=== PATIENT | female | born 1955 | race Caucasian/White ===

== ENCOUNTER 2024-08-11 11:11 | Observation (INO) | payer OTHER ==
[2024-08-11] MEDS ORDERED: CLINDAMYCIN 600MG PREMIX IVPB 600 MG/50 ML BAG IVPB ONE (13:19)
[2024-08-11 13:28] LABS: BASO % 0.2 % (0-2.0); EOS % 7.1 % (0-4.5); HEMATOCRIT 47.3 % (32.4-45.2); HEMOGLOBIN 15.8 GM/dL (10.7-15.3); LYMPH % 12.6 % (8-40); MCH 27.8 pg (25.7-33.7); MCHC 33.4 g/dl (32.0-36.0); MEAN PLT VOLUME 9.3 fl (7.5-11.1); MONO % 7.1 % (3.8-10.2); PLATELET COUNT 274 10^3/uL (134-434); RBC 5.69 M/mm3 (3.60-5.2); RDW 14.9 % (11.6-15.6); WHITE BLOOD COUNT 7.8 K/mm3 (4.0-10.0)
[2024-08-11 13:39] LABS: PH,URINE 5.5 (5.0-8.0); URINE APPEARANCE CLEAR; URINE BILIRUBIN NEGATIVE (NEGATIVE); URINE COLOR YELLOW; URINE GLUCOSE (UA) 3+ (NEGATIVE); URINE KETONE NEGATIVE (NEGATIVE); URINE LEUK ESTERASE NEGATIVE (NEGATIVE); URINE NITRITE NEGATIVE (NEGATIVE); URINE PROTEIN NEGATIVE (NEGATIVE); URINE UROBILINOGEN 0.2 mg/dL (0.2-1.0)
[2024-08-11] MEDS: CLINDAMYCIN 600MG PREMIX IVPB 600 MG/50 ML BAG IVPB ONE (13:43)
[2024-08-11 13:59] LABS: CHLORIDE 104 mmol/L (98-107); SODIUM 132 mmol/L (136-145)
[2024-08-11 14:01] LABS: ALBUMIN 3.7 g/dl (3.4-5.0); ANION GAP 4 mmol/L (4-13); BLOOD UREA NITROGEN 22.1 mg/dL (7-18); CO2 24 mmol/L (21-32); GLUCOSE,RANDOM 314 mg/dL (74-106)
[2024-08-11 14:04] LABS: SGOT/AST 75 U/L (15-37)
[2024-08-11 14:05] LABS: SGPT/ALT 34 U/L (13-61)
[2024-08-11 14:06] LABS: BILIRUBIN,TOTAL 0.5 mg/dL (0.2-1); TOT PROT 7.7 g/dl (6.4-8.2)
[2024-08-11 14:08] LABS: ALK PHOS 79 U/L (45-117)
[2024-08-11 14:29] LABS: LACTIC ACID 3.6 mmol/L (0.4-2.0)
[2024-08-11 16:51] LABS: LACTIC ACID 3.5 mmol/L (0.4-2.0)
[2024-08-11] MEDS: SODIUM ZIRCONIUM CYCLOSILICATE (LOKELMA) 5 GM PACKET PO SCH (18:04)
[2024-08-11] MEDS: SODIUM CHLORIDE 1,000 ML IV SCH (18:05)
[2024-08-11] MEDS: LACTATED RINGERS SOLUTION 1,000 ML/1,000 ML INFUS.BAG IV STA (20:17)
[2024-08-11 20:57] VITALS: BMI 28.0
[2024-08-11 21:17] LABS: CALCIUM 9.4 mg/dL (8.5-10.1)
[2024-08-11 21:18] LABS: BLOOD UREA NITROGEN 24.9 mg/dL (7-18)
[2024-08-11 21:21] LABS: CREATININE 0.9 mg/dL (0.55-1.3)
[2024-08-11 21:30] LABS: LACTIC ACID 2.2 mmol/L (0.4-2.0)
[2024-08-12] MEDS: CALCIUM GLUC IN NACL, ISO-OSM 1 GM/50 ML BAG IVPB ONE (00:19)
[2024-08-12] MEDS: INSULIN REGULAR HUMAN 100 UNITS/ML *VIAL IVPUSH ONE (00:19)
[2024-08-12] MEDS: VANCOMYCIN 1 GM PREMIX (F) 1 GM/200 ML BAG IVPB SCH ×2 (00:20)
[2024-08-12] MEDS: INSULIN ASPART SLIDING SCALE (NOVOLOG) 1 VIAL SQ SCH (00:20)
[2024-08-12 00:39] LABS: POTASSIUM 3.9 mmol/L (3.5-5.1)
[2024-08-12 00:42] LABS: BLOOD UREA NITROGEN 22.2 mg/dL (7-18)
[2024-08-12 00:44] LABS: CREATININE 0.6 mg/dL (0.55-1.3)
[2024-08-12 10:03] LABS: BASO % 0.1 % (0-2.0); EOS % 8.7 % (0-4.5); HEMATOCRIT 45.4 % (32.4-45.2); HEMOGLOBIN 14.7 GM/dL (10.7-15.3); LYMPH % 14.1 % (8-40); MCH 27.2 pg (25.7-33.7); MCHC 32.3 g/dl (32.0-36.0); MEAN CELL VOLUME 84.1 fl (80-96); MEAN PLT VOLUME 8.8 fl (7.5-11.1); MONO % 8.5 % (3.8-10.2); NEUT % 68.6 % (42.8-82.8); PLATELET COUNT 216 10^3/uL (134-434); RDW 14.4 % (11.6-15.6); WHITE BLOOD COUNT 6.6 K/mm3 (4.0-10.0)
[2024-08-12 10:30] LABS: POTASSIUM 3.8 mmol/L (3.5-5.1)
[2024-08-12 10:32] LABS: ALBUMIN 3.2 g/dl (3.4-5.0); BLOOD UREA NITROGEN 15.3 mg/dL (7-18); CALCIUM 9.1 mg/dL (8.5-10.1)
[2024-08-12 10:35] LABS: CREATININE 0.6 mg/dL (0.55-1.3); PHOSPHOROUS 3.7 mg/dL (2.5-4.9)
[2024-08-12 10:37] LABS: BILIRUBIN,TOTAL 0.5 mg/dL (0.2-1); TOT PROT 5.8 g/dl (6.4-8.2)
[2024-08-12] MEDS: diphenhydrAMINE HCL 25 MG CAPSULE (FP) PO PRN (11:02)
[2024-08-12] MEDS: EMPAGLIFLOZIN (JARDIANCE) 10 MG TABLET PO SCH (11:51)
[2024-08-12] MEDS ORDERED: metFORMIN HCL 500 MG TABLET (FP) PO SCH (16:30)
[2024-08-12] MEDS: methylPREDNISolone NA SUCC 40 MG/1 ML VIAL IVPB ONE (17:20)
[2024-08-12] MEDS: VANCOMYCIN 1,000 MG in DEXTROSE 5%-WATER - 250 ML IVPB SCH (17:27)
[2024-08-12] MEDS: ACETAMINOPHEN 325 MG TABLET (FP) PO PRN (18:23)
[2024-08-12] MEDS: INSULIN (LEVEMIR) 100 UNITS/ML UNITS SQ SCH (21:36)
[2024-08-13] MEDS: methylPREDNISolone NA SUCC 40 MG/1 ML VIAL IVPUSH SCH (14:11)
[2024-08-14] MEDS: TRIAMCINOLONE ACET 0.1% 60 ML LOTION TP SCH (00:46)
[2024-08-14] MEDS: INSULIN (LEVEMIR) 100 UNITS/ML UNITS SQ SCH (06:02)
[2024-08-14 15:04] VITALS: BP 146/64; PULSE 73; RESP 16; TEMP 98.1
[2024-08-15] MEDS ORDERED: methylPREDNISolone NA SUCC 40 MG/1 ML VIAL IVPUSH SCH (10:00)
[2024-08-18 16:07] LABS: C-ANCA <1:20 titer (Neg:<1:20)
== END 2024-08-14 04:40 | disposition home or self-care (01) ==
LOC: JER 11:11 → INTOOBSV 13:41 → JERBED 13:41 → UNDOADMOB 13:41 → J5S 15:05 → JERBED 15:05 → J5S 08-12 11:36
PROVIDERS: ADMIT Internal Medicine; ATTEND Internal Medicine
PROC: 3E03329 Introduction of Other Anti-infective into Peripheral Vein, Percutaneous Approach (ICD-10-PCS; principal; 2024-08-12)
PROC: 3E033GC Introduction of Other Therapeutic Substance into Peripheral Vein, Percutaneous Approach (ICD-10-PCS; 2024-08-12)
PROC: 3E023GC Introduction of Other Therapeutic Substance into Muscle, Percutaneous Approach (ICD-10-PCS; 2024-08-12)
PROC: 3E013VG Introduction of Insulin into Subcutaneous Tissue, Percutaneous Approach (ICD-10-PCS; 2024-08-12)
PROC: 3E0337Z Introduction of Electrolytic and Water Balance Substance into Peripheral Vein, Percutaneous Approach (ICD-10-PCS; 2024-08-12)
DX: L30.8 Other specified dermatitis (principal); L03.818 Cellulitis of other sites; E11.9 Type 2 diabetes mellitus without complications; Z88.0 Allergy status to penicillin; Z88.8 Allergy status to other drugs, medicaments and biological substances; I10 Essential (primary) hypertension
CPT/HCPCS: 36415; 74176-TC; 80048; 80053; 81003; 82962; 83036; 83520; 83605; 83735; 84100; 85025; 86160; 86256; 87040; 87077; 87086; 93005; 93010; 96361; 96365; 96366; 96367; 96372; 96375; 96376; 99285-25; G0378